=== PATIENT | female | born 1935 | race Caucasian/White ===

== ENCOUNTER 2023-03-26 10:40 | Emergency (ER) | payer MEDICARE ==
--- NOTE | 2023-03-26 11:29 | ED ---
Extremity Problem HPI - General Chief complaint: Recheck/Abnormal Lab/Rx Stated complaint: arm lump Time Seen by Provider: 03/26/23 10:49 Source: patient, RN notes reviewed Mode of arrival: ambulatory Limitations: no limitations - History of Present Illness Initial comments: This is an 87 year old female who presents to the emergency department for a lum p on her right arm. She first noticed this about 2 years ago after getting blood drawn. States that since then it has been increasing in size. It is also becoming increasingly painful. The pain is localized to the lump but does not spread up or down the arm. States that she went to [facility] a couple of weeks ago and they told her to follow-up with her primary care provider. She's never had any testing done on this. - Related Data Allergies Allergy/AdvReac Type Severity Reaction Status Date / Time No Known Allergies Allergy Verified 03/26/23 10:48 Review of Systems ROS Statement: Those systems with pertinent positive or pertinent negative responses have been documented in the HPI. ROS Other: All systems not noted in ROS Statement are negative. Past Medical History Past Medical History: No Reported History History of Any Multi-Drug Resistant Organisms: None Reported Past Surgical History: Hysterectomy Past Psychological History: No Psychological Hx Reported Smoking Status: Never smoker Past Alcohol Use History: None Reported Past Drug Use History: None Reported General Exam Limitations: no limitations General appearance: alert, in no apparent distress Head exam: Present: atraumatic, normocephalic, normal inspection Respiratory exam: Present: normal lung sounds bilaterally. Absent: respiratory distress, wheezes, rales, rhonchi, stridor Cardiovascular Exam: Present: regular rate, normal rhythm, normal heart sounds. Absent: systolic murmur, diastolic murmur, rubs, gallop, clicks Extremities exam: Present: other (2cm mobile lump in the right antecubital fossa. This is tender to palpation and boggy.) Neurological exam: Present: alert, oriented X3, CN II-XII intact Psychiatric exam: Present: normal affect, normal mood Course Vital Signs 03/26/23 03/26/23 10:43 12:30 Temperature 97.7 F 97.2 F L Pulse Rate 74 77 Respiratory 18 16 Rate Blood Pressure 137/68 134/81 O2 Sat by Pulse 98 98 Oximetry Medical Decision Making - Medical Decision Making This is an 87-year-old female who presents to the emergency department for a lump on her right arm. Was pt. sent in by a medical professional or institution? @ -No Did you speak to anyone other than the patient for history? @ -No Did you review nursing and triage notes? @ -Yes, and I agree, it is accurate with regards to the patient's symptoms. Were old charts reviewed? @ -No Differential Diagnosis? @ -Differential Arm Lump: Lipoma, hematoma, EKG interpreted by me (3pts min.)? @ -Not obtained X-rays interpreted by me (1pt min.)? @ -Not obtained CT interpreted by me (1pt min.)? @ -Not obtained U/S interpreted by me (1pt. min.)? @ -Ultrasound of the right upper extremity obtained. My interpretation identifies a masslike lesion. What testing was considered but not performed? (CT, X-rays, U/S, labs)? Why? @ -None What meds were considered but not given? Why? @ -None Did you discuss the management of the patient with other professionals? @ -No Did you reconcile home meds? @ -No Was smoking cessation discussed for >3mins.? @ -No Was critical care preformed (if so, how long)? @ -No Were there social determinants of health that impacted care today? How? (H omelessness, low income, unemployed, alcoholism, drug addiction, transportation, low edu. Level, literacy, decrease access to med. care, intermediate, rehab)? @ -No Was there de-escalation of care discussed even if they declined? (Discuss DNR or withdrawal of care, Hospice)? @ -No What co-morbidities impacted this encounter? (DM, HTN, Smoking, COPD, CAD, Cancer, CVA, Hep., AIDS, mental health diagnosis, sleep apnea, morbid obesity)? @ -None Was patient admitted / discharged? @ -Discharged. Ultrasound of the right upper extremity obtained demonstrating a solid-appearing mass in the right antecubital fossa. Further workup with an MRI is advised. Findings reviewed with the patient. She is advised to follow- up with her primary care provider and discuss ordering an MRI or additional testing on an outpatient basis. Undiagnosed new problem with uncertain prognosis? @ -None Drug Therapy requiring intensive monitoring for toxicity (Heparin, Nitro, Insulin, Cardizem)? @ -None Were any procedures done? @ -None Diagnosis/symptom? @ -Right arm mass Acute, or Chronic, or Acute on Chronic? @ -Acute Uncomplicated (without systemic symptoms) or Complicated (systemic symptoms)? @ -Uncomplicated Side effects of treatment? @ -None Exacerbation, Progression, or Severe Exacerbation] @ -Not applicable Poses a threat to life or bodily function? @ -No Return precautions reviewed in depth, the patient is instructed to return to the emergency department with any new, worsening, or concerning symptoms. Patient v erbalized understanding. This case was discussed in detail with the attending ED physician, Dr. Jacobson. Presentation, findings, and treatment plan discussed in detail as well. - Radiology Data Radiology results: report reviewed, image reviewed Disposition Clinical Impression: Mass of skin of right upper extremity Disposition: HOME SELF-CARE Additional Instructions: Return to the emergency department with any new, worsening, or concerning sy mptoms. The ultrasound report describes this as a solid, cystic like structure and an MRI is recommended for further evaluation. Contact your primary care provider regarding this to see if this can be ordered. Alternate with ibuprofen and Tylenol as needed for pain relief. Is patient prescribed a controlled substance at d/c from ED?: No Referrals: Bruno Callaway MD [Primary Care Provider] - 1-2 days
--- NOTE | 2023-03-26 12:05 | US ---
EXAMINATION TYPE: US extremity nonvascular mass RT DATE OF EXAM: 03/26/2023 COMPARISON: NONE CLINICAL INDICATION: Female, 87 years old with history of Right arm lump; Pt states palpable lump rig ht antecubital fossa x 2 years since blood draw/ pt states recently has increased in size and is tend er to touch TECHNIQUE: Right arm antecubital fossa FINDINGS: Solid lesion right antecubital fossa in area of pt's palpable= 2.6 x 1.6 x 2.1 cm- no inte rnal blood flow, there does appear to be peripheral blood flow and the right cephalic veins appears t o run adjacent to this mass IMPRESSION: 1. Solid-appearing mass in the antecubital fossa. Consider additional workup with MRI.
[2023-03-26 12:48] VITALS: BP 134/81; PULSE 77; RESP 16; TEMP 97.2
== END 2023-03-26 12:30 | disposition home or self-care (01) ==
LOC: EC 10:40
DX: R22.31 Localized swelling, mass and lump, right upper limb (principal)
CPT/HCPCS: 99283